=== PATIENT | male | born 1945 | race Caucasian/White ===

== ENCOUNTER 2016-11-09 10:57 | Outpatient (CLI) | payer OTHER ==
[~2016-11-09 10:57] MED LIST: ASPIRIN ADULT L81 M1 PO; CARVEDILOL6.25 MG PO; CHLORTHALIDONE25 MG PO; CIALIS20 MG PO; COZAAR25 MG PO; FERROUS SULFAT325 M1 PO; HYCET1 ML PO; LIPITOR80 MG PO; METFORMIN HCL500 MG PO
--- NOTE | 2016-11-09 15:48 | DIAGNOSTIC IMAGING REPORT ---
PROCEDURE: CT SOFT TISSUE NECK WITH CONT INDICATION: LYMPHOMA TECHNIQUE: 75 ml of Isovue 300 IV contrast was administered. Axial thin-slice CT images were acquired through the neck with coronal and sagittal reformations. If needed, angled axial CT images avoiding dental hardware were acquired. COMPARISON: 05/14/2016 FINDINGS: No significant adenopathy. Stable 2.9 cm round soft tissue mass in the hard palate. The glandular structures appear symmetric with normal attenuation and enhancement. Mucosal surfaces are normal without tonsillar enlargement. Parapharyngeal fat planes are normally maintained. The vasculature is patent and normal caliber bilaterally. Mild atherosclerosis. The visible portions of the sinuses and mastoids are normally aerated. The visible base of the brain is normal. Osseous structures are intact without periostitis or lytic lesion. Severe right-sided facet arthropathy in the upper cervical spine and diffuse degenerative changes elsewhere. No significant dental disease. The airway is patent. The lung apices are normally aerated. No suspicious mediastinal mass. Left subclavian Mediport. IMPRESSION: 1. No adenopathy in the neck. 2. Stable hard palate soft tissue mass. 3. Severe degenerative changes in the cervical spine.
--- NOTE | 2016-11-09 16:00 | DIAGNOSTIC IMAGING REPORT ---
PROCEDURE: CT THORAX ABD PELVIS W/CONT INDICATION: LYMPHOMA TECHNIQUE: 75 ml of Isovue 300 injected intravenously and axial images were obtained of the entire thorax, abdomen, and pelvis with sagittal and coronal reformations. COMPARISON: 05/14/2016 FINDINGS: THORAX: Left-sided Mediport. Mild bilateral gynecomastia. Moderate coronary calcification. Normal sized heart without pericardial effusion. Stable mediastinal lymph nodes. No bulky adenopathy. Stable 2 mm lateral right upper lobe nodule and pleural-based punctate anterior left upper lobe nodule (series 3 image 29). Lungs are otherwise clear. No anterior or posterior masses. Normal esophagus without hiatal hernia. The airway is patent and branches normally. No pleural effusions. No suspicious osseous lesions. Severe degenerative changes at the sternoclavicular joints. 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 Tiny right upper pole renal cortical cyst. Moderate abdominal aortic atherosclerosis. The liver, gallbladder, adrenal glands, spleen, pancreas, kidneys, retroperitoneal vasculature and ureters appear normal. No unusual calcifications, mass or adenopathy. The stomach and other bowel loops appear normal. No inflammation, fluid collections, or free air. PELVIS: No adenopathy or soft tissue mass. Mildly enlarged prostate gland. Normal appendix, pelvic bowel loops, and colon. Normal partially filled urinary bladder, pelvic vessels, and lymph nodes. Osseous lumbar spinal stenosis at multiple levels. 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 IMPRESSION: 1. No suspicious adenopathy in the chest, abdomen, or pelvis. 2. Stable punctate bilateral lung nodules, probably benign. 3. Atherosclerosis. 4. Findings suggestive of ankylosing spondylitis. All CT scans at this facility use dose modulation, iterative reconstruction, and/or weight-based dosing when appropriate to reduce radiation dose to as low as reasonably achievable.
== END 2016-11-09 23:00 ==
LOC: CT SRH 10:57
DX: C85.90 Non-Hodgkin lymphoma, unspecified, unspecified site (principal)
CPT/HCPCS: 90074; 90100; 92680; 93146; 95059